=== PATIENT | female | born 1950 | race African-American/Black ===

== ENCOUNTER 2016-03-16 10:04 | Outpatient (CLI) ==
[2015-08-10 17:47] VITALS: BMI 29.0
[2016-03-16 10:17] LABS: BASOPHILS # (AUTO) 0.1 K/uL (0-0.2); BASOPHILS % (AUTO) 1.6 % (0.0-3.0); EOSINOPHILS # (AUTO) 0.2 K/ul (0.0-0.7); EOSINOPHILS % (AUTO) 2.1 % (0.0-7.0); HEMATOCRIT 36.8 % (37.0-47.0); HEMOGLOBIN 12.5 g/dl (12.0-16.0); IMMATURE GRANULOCYTE % (AUTO) 0.2 % (0.0-5.0); LYMPHOCYTES # (AUTO) 4.2 K/uL (0.60-3.4); LYMPHOCYTES % (AUTO) 51.6 (10.0-50.0); MEAN CORPUSCULAR HEMOGLOBIN 28.3 pg (27.0-31.0); MEAN CORPUSCULAR VOLUME 83.3 fl (81.0-99.0); MONOCYTES # (AUTO) 0.6 K/uL (0.4-2.0); MONOCYTES % (AUTO) 7.5 (0-10); PLATELET COUNT 307 10^3/uL (140-440); RED BLOOD COUNT 4.42 10^6/ul (4.20-5.40)
[2016-03-16 15:04] LABS: ALBUMIN 4.2 g/dL (3.4-5.0); ALBUMIN/GLOBULIN RATIO 1.31; ANION GAP 17.2; BILIRUBIN,TOTAL 1.08 mg/dL (0.00-1.20); BUN/CREATININE RATIO 18.18; CALCIUM 9.6 mg/dL (8.2-10.2); CHOL/HDL RATIO 4.1 (4.5-5.5); CREATININE 0.88 mg/dL (0.60-1.30); POTASSIUM 4.2 mmol/L (3.5-5.10); TOTAL PROTEIN 7.4 g/dL (5.8-8.1)
== END 2016-03-16 10:05 | disposition home or self-care (01) ==
LOC: LAB 10:04
PROVIDERS: ATTEND Nurse Practitioner Family
DX: E11.9 Type 2 diabetes mellitus without complications (principal); I63.9 Cerebral infarction, unspecified; I10 Essential (primary) hypertension; E78.1 Pure hyperglyceridemia; E78.5 Hyperlipidemia, unspecified
CPT/HCPCS: 36415; 80053; 80061; 83036; 84443; 85025

== ENCOUNTER 2016-06-25 10:25 | Outpatient (CLI) ==
[2015-08-10 17:47] VITALS: BMI 29.0
[2016-06-25 10:43] LABS: BASOPHILS # (AUTO) 0.2 K/uL (0-0.2); BASOPHILS % (AUTO) 2.1 % (0.0-3.0); EOSINOPHILS # (AUTO) 0.2 K/ul (0.0-0.7); EOSINOPHILS % (AUTO) 2.3 % (0.0-7.0); HEMATOCRIT 35.9 % (37.0-47.0); HEMOGLOBIN 12.2 g/dl (12.0-16.0); IMMATURE GRANULOCYTE % (AUTO) 0.3 % (0.0-5.0); LYMPHOCYTES # (AUTO) 4.4 K/uL (0.60-3.4); LYMPHOCYTES % (AUTO) 57.1 (10.0-50.0); MEAN CORPUSCULAR HEMOGLOBIN 27.7 pg (27.0-31.0); MEAN CORPUSCULAR VOLUME 81.6 fl (81.0-99.0); MONOCYTES # (AUTO) 0.6 K/uL (0.4-2.0); MONOCYTES % (AUTO) 7.2 (0-10); NEUTROPHILS # (AUTO) 2.4 K/ul (2.0-6.9); PLATELET COUNT 310 10^3/uL (140-440); WHITE BLOOD COUNT 7.78 K/ul (4.6-10.2)
[2016-06-25 11:19] LABS: ALBUMIN 4.2 g/dL (3.4-5.0); ALBUMIN/GLOBULIN RATIO 1.45; BILIRUBIN,TOTAL 1.27 mg/dL (0.00-1.20); BUN/CREATININE RATIO 18.29; CALCIUM 9.4 mg/dL (8.2-10.2); CHOL/HDL RATIO 3.7 (4.5-5.5); CREATININE 0.82 mg/dL (0.60-1.30); TOTAL PROTEIN 7.1 g/dL (5.8-8.1)
== END 2016-06-25 10:26 | disposition home or self-care (01) ==
LOC: LAB 10:25
PROVIDERS: ATTEND Nurse Practitioner Family
DX: E11.9 Type 2 diabetes mellitus without complications (principal); I63.9 Cerebral infarction, unspecified; E78.5 Hyperlipidemia, unspecified; E78.1 Pure hyperglyceridemia; I10 Essential (primary) hypertension
CPT/HCPCS: 36415; 80053; 80061; 83036; 84443; 85025

== ENCOUNTER 2016-10-22 10:14 | Outpatient (CLI) ==
[2015-08-10 17:47] VITALS: BMI 29.0
[2016-10-22 10:50] LABS: BASOPHILS # (AUTO) 0.1 K/uL (0-0.2); BASOPHILS % (AUTO) 1.9 % (0.0-3.0); EOSINOPHILS # (AUTO) 0.1 K/ul (0.0-0.7); EOSINOPHILS % (AUTO) 1.9 % (0.0-7.0); HEMATOCRIT 36.1 % (37.0-47.0); HEMOGLOBIN 12.5 g/dl (12.0-16.0); IMMATURE GRANULOCYTE % (AUTO) 0.1 % (0.0-5.0); LYMPHOCYTES # (AUTO) 3.8 K/uL (0.60-3.4); LYMPHOCYTES % (AUTO) 56.1 (10.0-50.0); MEAN CORPUSCULAR HEMOGLOBIN 27.4 pg (27.0-31.0); MEAN CORPUSCULAR HGB CONC 34.6 (31.8-35.4); MONOCYTES # (AUTO) 0.5 K/uL (0.4-2.0); MONOCYTES % (AUTO) 7.5 (0-10); NEUTROPHILS # (AUTO) 2.2 K/ul (2.0-6.9); NEUTROPHILS % (AUTO) 32.5; PLATELET COUNT 314 10^3/uL (140-440); RED BLOOD COUNT 4.57 10^6/ul (4.20-5.40); WHITE BLOOD COUNT 6.69 K/ul (4.6-10.2)
[2016-10-22 10:55] LABS: ALBUMIN 4.1 g/dL (3.4-5.0); ALBUMIN/GLOBULIN RATIO 1.28; ANION GAP 15.5; BILIRUBIN,TOTAL 1.45 mg/dL (0.00-1.20); BUN/CREATININE RATIO 19.23; CHOL/HDL RATIO 5.1 (4.5-5.5); CREATININE 0.78 mg/dL (0.60-1.30); POTASSIUM 3.5 mmol/L (3.5-5.10); TOTAL PROTEIN 7.3 g/dL (5.8-8.1)
== END 2016-10-22 10:15 | disposition home or self-care (01) ==
LOC: LAB 10:14
PROVIDERS: ATTEND Nurse Practitioner Family
DX: E78.5 Hyperlipidemia, unspecified (principal); I10 Essential (primary) hypertension; I63.9 Cerebral infarction, unspecified; E78.1 Pure hyperglyceridemia; E11.9 Type 2 diabetes mellitus without complications
CPT/HCPCS: 36415; 80053; 80061; 83036; 85025

== ENCOUNTER 2016-11-08 10:56 | Outpatient (CLI) ==
[2015-08-10 17:47] VITALS: BMI 29.0
== END 2016-11-08 10:57 | disposition home or self-care (01) ==
LOC: RAD 10:56
PROVIDERS: ATTEND Nurse Practitioner Family
DX: Z12.31 Encounter for screening mammogram for malignant neoplasm of breast (principal)
CPT/HCPCS: 77067

== ENCOUNTER 2017-01-19 10:25 | Outpatient (CLI) ==
[2015-08-10 17:47] VITALS: BMI 29.0
[2017-01-19 10:45] LABS: BASOPHILS # (AUTO) 0.1 K/uL (0-0.2); BASOPHILS % (AUTO) 1.6 % (0.0-3.0); EOSINOPHILS # (AUTO) 0.2 K/ul (0.0-0.7); EOSINOPHILS % (AUTO) 2.5 % (0.0-7.0); HEMATOCRIT 35.2 % (37.0-47.0); HEMOGLOBIN 12.2 g/dl (12.0-16.0); IMMATURE GRANULOCYTE % (AUTO) 0.5 % (0.0-5.0); LYMPHOCYTES # (AUTO) 3.5 K/uL (0.60-3.4); LYMPHOCYTES % (AUTO) 48.4 (10.0-50.0); MEAN CORPUSCULAR HGB CONC 34.7 (31.8-35.4); MEAN CORPUSCULAR VOLUME 80.9 fl (81.0-99.0); MONOCYTES # (AUTO) 0.6 K/uL (0.4-2.0); NEUTROPHILS # (AUTO) 2.8 K/ul (2.0-6.9); PLATELET COUNT 296 10^3/uL (140-440); RED BLOOD COUNT 4.35 10^6/ul (4.20-5.40); WHITE BLOOD COUNT 7.29 K/ul (4.6-10.2)
[2017-01-19 11:03] LABS: ALBUMIN 3.9 g/dL (3.4-5.0); ALBUMIN/GLOBULIN RATIO 1.15; ANION GAP 14.2; BILIRUBIN,TOTAL 0.88 mg/dL (0.00-1.20); BUN/CREATININE RATIO 12.5; CALCIUM 9.4 mg/dL (8.2-10.2); CHOL/HDL RATIO 3.8 (4.5-5.5); CREATININE 0.8 mg/dL (0.60-1.30); POTASSIUM 4.2 mmol/L (3.5-5.10); TOTAL PROTEIN 7.3 g/dL (5.8-8.1)
== END 2017-01-19 10:26 | disposition home or self-care (01) ==
LOC: LAB 10:25
PROVIDERS: ATTEND Nurse Practitioner Family
DX: Z12.31 Encounter for screening mammogram for malignant neoplasm of breast (principal); E11.9 Type 2 diabetes mellitus without complications; E78.5 Hyperlipidemia, unspecified; E78.1 Pure hyperglyceridemia; I63.9 Cerebral infarction, unspecified
CPT/HCPCS: 36415; 80053; 80061; 83036; 85025

== ENCOUNTER 2017-04-19 09:53 | Outpatient (CLI) ==
[2015-08-10 17:47] VITALS: BMI 29.0
== END 2017-04-19 09:54 | disposition home or self-care (01) ==
LOC: LAB 09:53
PROVIDERS: ATTEND Nurse Practitioner Family
DX: E78.1 Pure hyperglyceridemia (principal); E78.5 Hyperlipidemia, unspecified; E11.9 Type 2 diabetes mellitus without complications; I63.9 Cerebral infarction, unspecified; I10 Essential (primary) hypertension
CPT/HCPCS: 36415; 80053; 80061; 83036

== ENCOUNTER 2017-07-18 10:23 | Outpatient (CLI) ==
[2015-08-10 17:47] VITALS: BMI 29.0
== END 2017-07-18 10:24 | disposition home or self-care (01) ==
LOC: LAB 10:23
PROVIDERS: ATTEND Nurse Practitioner Family
DX: E11.9 Type 2 diabetes mellitus without complications (principal); I10 Essential (primary) hypertension; I63.9 Cerebral infarction, unspecified; E78.1 Pure hyperglyceridemia; E78.5 Hyperlipidemia, unspecified
CPT/HCPCS: 36415; 80053; 80061; 83036; 84443; 85025

== ENCOUNTER 2017-11-17 08:08 | Outpatient (CLI) ==
[2015-08-10 17:47] VITALS: BMI 29.0
--- NOTE | 2017-11-18 08:46 | MAMMO ---
EXAM: Digital screening mammogram with tomosynthesis HISTORY: Screening COMPARISON: 11/08/2016 FINDINGS: Digital MLO and CC views of the right and left breast were performed. Tomosynthesis was p erformed. Computer aided detection utilized. There are scattered fibroglandular densities. Benign bi lateral calcifications. There is no evidence for mass, asymmetry, distortion, or suspicious calcific ations in either breast. IMPRESSION: 1. No evidence of malignancy in the right or left breast. 2. Annual screening mammogram is recommended in one year. BIRADS category 2, benign
== END 2017-11-17 08:09 | disposition home or self-care (01) ==
LOC: RAD 08:08
PROVIDERS: ATTEND Nurse Practitioner Family
DX: Z12.31 Encounter for screening mammogram for malignant neoplasm of breast (principal)
CPT/HCPCS: 77067

== ENCOUNTER 2018-05-25 09:43 | Outpatient (CLI) ==
[2015-08-10 17:47] VITALS: BMI 29.0
== END 2018-05-25 09:44 | disposition home or self-care (01) ==
LOC: LAB 09:43
PROVIDERS: ATTEND Nurse Practitioner Family
DX: I63.9 Cerebral infarction, unspecified (principal); I10 Essential (primary) hypertension; E11.9 Type 2 diabetes mellitus without complications; E78.5 Hyperlipidemia, unspecified
CPT/HCPCS: 36415; 80053; 80061; 83036; 85025

== ENCOUNTER 2020-11-07 23:36 | Inpatient (IN) ==
--- NOTE | 2020-11-07 23:50 | ED.PDOC ---
General ED Provider: Dr. RITESH BENEDICT Chief Complaint: Hypertension Stated Complaint: was elevated tonight - daughter wanted to check it . Pt had some dizzyness past week . Last BP at office was in june when lisinopril was increased from 10 to 20 mg daily .Also on diltiazem sr 120. No chest pain , fever , palpitaions . Compliant with meds - take both btwn 10:30-1100 am daily Time Seen by Provider: 11/07/20 23:50 Mode of Arrival: Walk-In Information Source: Patient Exam Limitations: No limitations Primary Care Provider: XAVIER KAPOOR APRN, FNP-BC Nursing and Triage Documentation Reviewed and Agree: Yes Does patient meet sepsis criteria?: No System Inflammatory Response Syndrome: Not Applicable Sepsis Protocol: For patient's 13 years and over: Temp is 96.8 and below OR 101 and greater Pulse >90 BPM Resp >20/minute Acutely Altered Mental Status Are patient's symptoms suggestive of a new infection, such as: -Pneumonia -Skin, Soft Tissue -Endocarditis -UTI -Bone, Joint Infection -Implantable Device -Acute Abdominal Infection -Wound Infection -Meningitis -Blood Stream Catheter Infection -Unknown Cardiovascular Complaint Exam Hypertension Complaint/Exam Onset/Duration: Last BP measurement in June - was elevated then had increase in lisinopril Reported B/P Prior to Arrival: / Aggravating: Reports None Alleviating: Reports None Associated Signs and Symptoms: Reports Dizziness; Denies Chest pain, Vision changes, Anxiety, Recent stress, Headache, Numbness, Tingling, Weakness, Short of air or Swelling Related History: Reports Current Felton Inhibitors and Current Ca Ivy.Libertad Related Surgical History: Denies Cardiac Cath, PTCA/Stent, CABG, Pacemaker, Valve Replacement, Aneurysm Repair or Renal Surgery Cardiac Risk Factors: Reports Hypertension, Diabetes and Elevated lipids Recent Change in Medications: No Papilledema Present: No JVD Present: No Differential Diagnoses: Hypertension and Hypertensive Urgency Review of Systems Review Of Systems Constitutional: Reports No symptoms Ears, Nose, Mouth, Throat: Reports No symptoms Respiratory: Reports No symptoms Cardiac: Reports No symptoms GI: Reports No symptoms : Reports No symptoms Musculoskeletal: Reports No symptoms Skin: Reports No symptoms Neurological: Reports Other (dizzyness) Endocrine: Reports No symptoms Hematologic/Lymphatic: Reports No symptoms All Other Systems: Reviewed and Negative FOR[facility]LY [facility] Medical History Adrenal nodule Bipolar disorder Cataract Diabetes mellitus Dyslipidemia Encounter for diabetic foot exam Fall Hypertension Influenza vaccination declined by patient Injury of right scapular region Injury of toe on left foot Laceration of toe of left foot without damage to nail Menopause present Multiple gallstones Pneumococcal vaccination declined by patient Toenail avulsion Family History BROTHER Cancer BROTHER Cancer Other Colorectal cancer Social History Smoking and tobacco status: Never smoker Second hand smoke exposure: Yes Alcohol intake: never Substance use type: does not use Eleanor/jainism: None Special eleanor needs: No Agree to transfusion: Yes Adopted: No Caregiver/support person: Yes Foster care: No Household members: children Housing: apartment Lives independently: Yes Highest education level completed: high school graduate Financial difficulty paying for basics: not applicable service: No Current occupational status: retired Current occupational exposures/hazards: No Pets and animals: No Leisure activites: other History of recent travel: No Sexually active: No Do you think of yourself as: straight/heterosexual Current gender identity: female Seatbelt use: always Helmet use: No Drives intoxicated or rides with intoxicated carrier driver: No Current diet type/program: diabetic Water heater temperature set < 120 degrees: Yes Working smoke detector in home: Yes Fire extinguisher in home: Yes Carbon monoxide detector in home: Yes Firearms in home: No What type of physical activity do you participate in?: none Physical activity functional status: independent ambulation Surgical History History of tubal ligation (~1981) Female Reproductive History Menstrual Hx Hysterectomy: No Hx Tubal Ligation: Yes Physical Exam Physical Exam Appearance: Reports Well-appearing Ill-appearing: None Pain Distress: None Eyes: Reports MARCIAL, EOMI and Other (pupils small and equal - difficult to see disc) ENT: Reports Ears normal, Nose normal and Oropharynx normal Neck: Supple Respiratory: Reports Airway patent, Breath sounds clear and Breath sounds equal Cardiovascular: Reports RRR, Pulses normal, No rub and No murmur GI/: Reports Soft and Nontender Musculoskeletal: Reports Normal strength and ROM intact Skin: Reports Dry and Normal color Neurological: Reports Sensation intact, Motor intact, Alert and Oriented Psychiatric: Reports Affect appropriate and Mood appropriate Interpretation Radiology Interpretation Radiology Interpretation By: Radiologist Radiology Results: No acute changes Exam Interpreted: CT Scan Xray Comments: brain - no new stroke Radiology Results: No acute changes Exam Interpreted: Portable CXR EKG Interpretation Time of EKG #1: 02:08 Rate: Normal Rhythm: Sinus Ectopy: None Birdseye: Left ST Segment: Normal Interpretation: nac Critical Care Note Critical Care Note Total Critical Care Time (mins): 30 Comments: history /exam / lab / imaging charts reexam / up to date / meds for bp po and IV /re evaluate / hospitalist consult / reassess / family discussion Course Course Hematology/Chemistry: 11/08/20 00:45 11/08/20 00:45 Orders, Labs, Meds: Lab Review 11/08/20 11/08/20 11/08/20 00:45 00:45 03:35 WBC 9.18 RBC 4.06 L Hgb 11.3 L Hct 33.5 L MCV 82.5 MCH 27.8 MCHC 33.7 RDW Coeff of Nanette 13.8 Plt Count 282 Immature Gran % (Auto) 0.2 Neut % (Auto) 33.5 L Lymph % (Auto) 49.9 [place] % (Auto) 9.9 Eos % (Auto) 5.2 Baso % (Auto) 1.3 Neut # (Auto) 3.1 Lymph # (Auto) 4.6 H [place] # (Auto) 0.9 Eos # (Auto) 0.5 Baso # (Auto) 0.1 Immature Gran # (Auto) 0.0 Sodium 141.9 Potassium 3.54 Chloride 107.0 Carbon Dioxide 24.2 Anion Gap 14.24 BUN 16.6 Creatinine 0.91 Estimated GFR (MDRD) 74.00 BUN/Creatinine Ratio 18.24 Glucose 202.1 H Calcium 10.06 Magnesium 1.38 L Total Bilirubin 0.72 AST 47.5 H ALT 39.5 H Alkaline Phosphatase 95.9 Troponin I 0.019 Total Protein 6.75 Albumin 4.24 Globulin 2.51 Albumin/Globulin Ratio 1.68 Urine Color Urine Clarity Urine pH Ur Specific [place] Urine Protein Urine Glucose (UA) Urine Ketones Urine Blood Urine Nitrite Urine Bilirubin Urine Urobilinogen Ur Leukocyte Esterase Urine Microscopic WBC Ur Squamous Epith Cells Urine Bacteria Hyaline Casts Urine Mucus Adenovirus (PCR) Not detected B. pertussis DNA (PCR) Not detected B.parapertussis DNA PCR Not detected C. pneumoniae DNA (PCR) Not detected Coronavirus OC43 (PCR) Not detected Coronavirus HKU1 (PCR) Not detected Coronavirus 229E (PCR) Not detected Coronavirus NL63 (PCR) Not detected Human Metapneumovir PCR Not detected Influenza Type A (PCR) Not detected Influenza B (RT-PCR) Not detected M. pneumoniae (PCR) Not detected Parainfluenza 1 (PCR) Not detected Parainfluenza 2 (PCR) Not detected Parainfluenza 3 (PCR) Not detected Parainfluenza 4 (PCR) Not detected RSV (PCR) Not detected Entero/Rhino (PCR) Not detected SARS-CoV-2 (PCR) Not detected 11/08/20 04:00 WBC RBC Hgb Hct MCV MCH MCHC RDW Coeff of Nanette Plt Count Immature Gran % (Auto) Neut % (Auto) Lymph % (Auto) [place] % (Auto) Eos % (Auto) Baso % (Auto) Neut # (Auto) Lymph # (Auto) [place] # (Auto) Eos # (Auto) Baso # (Auto) Immature Gran # (Auto) Sodium Potassium Chloride Carbon Dioxide Anion Gap BUN Creatinine Estimated GFR (MDRD) BUN/Creatinine Ratio Glucose Calcium Magnesium Total Bilirubin AST ALT Alkaline Phosphatase Troponin I Total Protein Albumin Globulin Albumin/Globulin Ratio Urine Color Yellow Urine Clarity Clear Urine pH 5.5 Ur Specific [place] 1.025 Urine Protein 2+ H Urine Glucose (UA) Negative Urine Ketones Negative Urine Blood Negative Urine Nitrite Negative Urine Bilirubin Negative Urine Urobilinogen 0.2 Ur Leukocyte Esterase Negative Urine Microscopic WBC 0-2 Ur Squamous Epith Cells 5-10 Urine Bacteria Trace Hyaline Casts 2-5 Urine Mucus 1+ Adenovirus (PCR) B. pertussis DNA (PCR) B.parapertussis DNA PCR C. pneumoniae DNA (PCR) Coronavirus OC43 (PCR) Coronavirus HKU1 (PCR) Coronavirus 229E (PCR) Coronavirus NL63 (PCR) Human Metapneumovir PCR Influenza Type A (PCR) Influenza B (RT-PCR) M. pneumoniae (PCR) Parainfluenza 1 (PCR) Parainfluenza 2 (PCR) Parainfluenza 3 (PCR) Parainfluenza 4 (PCR) RSV (PCR) Entero/Rhino (PCR) SARS-CoV-2 (PCR) Orders Category Date Time Status EKG-(ED ONLY) Stat CARDIO 11/08/20 00:28 Completed ED IV/MEDIPORT/POWERPORT .ONCE EMERGENCY 11/08/20 01:55 Active CBC W/ AUTO DIFF Stat LAB 11/08/20 00:45 Completed COMPREHENSIVE METABOLIC PANEL Stat LAB 11/08/20 00:45 Completed MAGNESIUM Stat LAB 11/08/20 00:45 Completed RESPIRATORY PANEL 2.1 (PCR) Stat LAB 11/08/20 03:35 Completed TROPONIN I Stat LAB 11/08/20 00:45 Completed URINALYSIS WITH MICROSCOPIC Stat LAB 11/08/20 04:00 Completed 0.9 % Sodium Chloride [Saline Flush] MEDS 11/08/20 01:55 Active 1 syr IVF PRN PRN Clonidine HCl [Catapres] MEDS 11/08/20 01:55 Discontinued 0.1 mg PO ONCE STA Hydralazine HCl MEDS 11/08/20 03:25 Discontinued 5 mg IVP ONCE ONE Hydralazine HCl MEDS 11/08/20 02:41 Discontinued 5 mg IVP ONCE STA Lisinopril [Zestril] MEDS 11/08/20 00:28 Discontinued 20 mg PO ONCE STA CHEST, 2 VIEWS PA & LAT Stat RADS 11/08/20 00:[address] HEAD W/O CONTRAST Stat RADS 11/08/20 00:28 Completed Medications Generic Name Dose Route Start Last Admin Trade Name Freq PRN Reason Stop Dose Admin Magnesium Sulfate/Dextrose 2 gm in 200 mls @ 100 mls/hr 11/08/20 09:00 Magnesium Sulfate 1 Gm/100 Ml D5w IV 11/08/20 10:59 ONCE ONE Sodium Chloride 1 syr 11/08/20 01:55 0.9% Sodium Chloride 10 Ml Disp.Syrin IVF PRN PRN To flush IV Discontinued Medications Generic Name Dose Route Start Last Admin Trade Name Freq PRN Reason Stop Dose Admin Clonidine 0.1 mg 11/08/20 01:55 11/08/20 02:01 Clonidine Hcl 0.1 Mg Tablet PO 11/08/20 01:56 0.1 mg ONCE STA Administration Hydralazine HCl 5 mg 11/08/20 02:41 11/08/20 02:47 Hydralazine Hcl 20 Mg/Ml Sdv IVP 11/08/20 02:42 5 mg ONCE STA Administration Hydralazine HCl 5 mg 11/08/20 03:25 11/08/20 05:17 Hydralazine Hcl 20 Mg/Ml Sdv IVP 11/08/20 03:26 Not Given ONCE ONE Hydralazine HCl 5 mg 11/08/20 07:35 11/08/20 07:45 Hydralazine Hcl 20 Mg/Ml Sdv IVP 11/08/20 07:36 5 mg ONCE STA Administration Magnesium Sulfate/Dextrose 1 gm in 100 mls @ 100 mls/hr 11/08/20 08:30 Magnesium Sulfate 1 Gm/100 Ml D5w IV 11/08/20 09:29 ONCE ONE Lisinopril 20 mg 11/08/20 00:28 11/08/20 00:42 Lisinopril 10 Mg Tablet PO 11/08/20 00:29 20 mg ONCE STA Administration Vital Signs: Temp Pulse Resp BP Pulse Ox 11/07/20 23:37 96.8 F L 72 14 208/102 H 100 CECE Risk Score CECE Risk Score: Risk Score Odds of by 30D 0 0.1 (0.1-0.2) 1 0.3 (0.2-0.3) 2 0.4 (0.3-0.5) 3 0.7 (0.6-0.9) 4 1.2 (1.0-1.5) 5 2.2 (1.9-2.6) 6 3.0 (2.5-3.6) 7 4.8 (3.8-6.1) Discharge Plan Discharge Patient Disposition: PLACED OBSERVATION Discharge Problem: Hypertensive urgency ED Provider: RITESH BENEDICT Condition: Good Physician Progress Note: [pt Syed works at [facility] [employer] and asked about her Mother going there / called and they had 4 pts awaiting beds / reassessed pt and bp slowly coming down and additional hydralazine stopped. Pt has remained at 25-30 % lower than her arrival pressures. Rediscussed with Daughter and pt will considered for observation here . Rechecked with pt and she is asymptomatic and awake . Will repeat EKG and troponin. EKG - some t wave inversion I,,AVL ,V5 & V6.suggesting lateral ischemia Prior tracing had smaller t inversion 5 and 6 only.Will run another troponin while in the ED . Trop increased but is still in normal limits. No chest pain . Pressure has went up and will add 5 mg hydralazine IV. Update provided to Tia ( zaki ) Pt mentioned going home and explained her bp needs further monitoring.Syed works at and they have no tele beds available and she asked us to try [facility]. Report given to Dr Lima at shift change. Unable to put mag IV order in requested pharmacisit assistance. Added accucheck.
[2020-11-08] MEDS ORDERED: ZESTRIL PO STA (00:28)
[2020-11-08 00:50] LABS: BASOPHILS # (AUTO) 0.1 K/uL (0-0.2); BASOPHILS % (AUTO) 1.3 % (0.0-3.0); EOSINOPHILS # (AUTO) 0.5 K/ul (0.0-0.7); EOSINOPHILS % (AUTO) 5.2 % (0.0-7.0); HEMATOCRIT 33.5 % (37.0-47.0); HEMOGLOBIN 11.3 g/dl (12.0-16.0); IMMATURE GRANULOCYTE % (AUTO) 0.2 % (0.0-5.0); LYMPHOCYTES # (AUTO) 4.6 K/uL (0.60-3.4); LYMPHOCYTES % (AUTO) 49.9 (10.0-50.0); MEAN CORPUSCULAR HEMOGLOBIN 27.8 pg (27.0-31.0); MEAN CORPUSCULAR HGB CONC 33.7 (31.8-35.4); MEAN CORPUSCULAR VOLUME 82.5 fl (81.0-99.0); MONOCYTES # (AUTO) 0.9 K/uL (0.4-2.0); MONOCYTES % (AUTO) 9.9 (0-10); NEUTROPHILS # (AUTO) 3.1 K/ul (2.0-6.9); NEUTROPHILS % (AUTO) 33.5 % (42.2-75.2); PLATELET COUNT 282 10^3/uL (140-440); RDW COEFFICIENT OF VARIATION 13.8 % (11.6-14.8); RED BLOOD COUNT 4.06 10^6/ul (4.20-5.40); WHITE BLOOD COUNT 9.18 K/ul (4.6-10.2)
[2020-11-08 00:57] LABS: ALANINE AMINOTRANSFERASE 39.5 U/L (0-35); ALBUMIN 4.24 g/dL (3.5-5.0); ALKALINE PHOSPHATASE 95.9 U/L (53-141); ASPARTATE AMINO TRANSFERASE 47.5 U/L (14-36); BILIRUBIN,TOTAL 0.72 mg/dL (0.2-1.3); BLOOD UREA NITROGEN 16.6 mg/dL (7-17); CALCIUM 10.06 mg/dL (8.4-10.2); CARBON DIOXIDE 24.2 mmol/L (22-30.0); CREATININE 0.91 mg/dL (0.60-1.30); GLUCOSE 202.1 mg/dL (74-106); MAGNESIUM 1.38 mg/dL (1.6-2.3); POTASSIUM 3.54 mmol/L (3.5-5.1); SODIUM 141.9 mmol/L (134.5-145); TOTAL PROTEIN 6.75 g/dL (6.3-8.2)
[2020-11-08 01:09] LABS: TROPONIN I 0.019 ng/ml (0.0000-0.120)
--- NOTE | 2020-11-08 01:20 | CT ---
EXAM: CT head without contrast. HISTORY: Dizzy past week on clopidigril/hyperten, hx cva. PROCEDURE: Contiguous axial CT images of the head without contrast with coronal and sagittal reforma ts. FINDINGS: There is diffuse cerebral atrophy. The ventricles and basal cisterns are normal in size an d configuration. No evidence of mass or midline shift. No intracranial hemorrhage or evidence of ne w large vessel infarct. There are old right frontal, right parietal and left cerebellar infarcts. T here are chronic small vessel ischemic changes in the white matter. There is mucosal thickening in t he left maxillary sinus. There is partial sclerosis of the right mastoid air cells. There is partia l opacification of the left mastoid air cells. Impression: No intracranial hemorrhage or evidence of new large vessel infarct. 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 Chronic small vessel ischemic changes. Diffuse cerebral atrophy. Left mastoiditis. Left maxillary sinusitis. All CT scans are performed using dose optimization techniques as appropriate to the performed exam an d include at least one of the following: Automated exposure control, adjustment of the mA and/or kV according t o size, and the use of iterative reconstruction technique.
--- NOTE | 2020-11-08 01:21 | DI ---
EXAM: PA and lateral views of the chest. HISTORY: Hypertension. FINDINGS: The bones are unremarkable. The cardiac silhouette and pulmonary vasculature are within no rmal limits. There is ectasia of the thoracic aorta. The costophrenic angles are clear. No infiltr ate or consolidation. There is eventration of the right hemidiaphragm. Impression: No acute cardiopulmonary disease.
[2020-11-08] MEDS ORDERED: CATAPRES PO STA (01:55)
[2020-11-08] MEDS ORDERED: HYDRALAZINE HCL IVP STA ×2 (02:41→07:35)
[2020-11-08] MEDS ORDERED: HYDRALAZINE HCL IVP ONE (03:25)
[2020-11-08 03:40] LABS: BORDETELLA PARAPERTUSSIS (PCR) NOT DETECTED (NOT DETECT); BORDETELLA PERTUSSIS (PCR) NOT DETECTED (NOT DETECT); CHLAMYDIA PNEUMONIAE (PCR) NOT DETECTED (NOT DETECT); CORONAVIRUS 229E (PCR) NOT DETECTED (NOT DETECT); CORONAVIRUS HKU1 (PCR) NOT DETECTED (NOT DETECT); CORONAVIRUS NL63 (PCR) NOT DETECTED (NOT DETECT); CORONAVIRUS OC43 (PCR) NOT DETECTED (NOT DETECT); HUMAN METAPNEUMOVIRUS (PCR) NOT DETECTED (NOT DETECT); HUMAN RHINOVIRUS/ENTEROV (PCR) NOT DETECTED (NOT DETECT); INFLUENZA B (PCR) NOT DETECTED (NOT DETECT); MYCOPLASMA PNEUMONIAE (PCR) NOT DETECTED (NOT DETECT); PARAINFLUENZA VIRUS 1 (PCR) NOT DETECTED (NOT DETECT); PARAINFLUENZA VIRUS 2 (PCR) NOT DETECTED (NOT DETECT); PARAINFLUENZA VIRUS 3 (PCR) NOT DETECTED (NOT DETECT); PARAINFLUENZA VIRUS 4 (PCR) NOT DETECTED (NOT DETECT); RESPIRATORY SYNCYTIAL V (PCR) NOT DETECTED (NOT DETECT); SARS_COV_2 (PCR) NOT DETECTED (NOT DETECT)
[2020-11-08 04:25] LABS: ADENOVIRUS (PCR) NOT DETECTED (NOT DETECT)
[2020-11-08 04:51] LABS: BILIRUBIN,URINE Negative (NEGATIVE); CLARITY,URINE Clear (CLEAR); COLOR,URINE Yellow (YELLOW); GLUCOSE, URINE (UA) Negative (NEGATIVE); KETONES,URINE Negative (NEGATIVE); LEUKOCYTE ESTERASE ,URINE Negative (NEGATIVE); NITRITE,URINE Negative (NEGATIVE); PH,URINE 5.5 (5-9); PROTEIN,URINE 2+ (NEGATIVE); URINE, BLOOD Negative (NEGATIVE); UROBILINOGEN,URINE 0.2 (0.2)
[2020-11-08 04:57] LABS: URINE WBC, MICROSCOPIC 0-2 (0-2)
[2020-11-08 04:58] LABS: BACTERIA,URINE TRACE (NOT PRESENT); MUCUS,URINE 1+ (NOT PRESENT)
[2020-11-08] MEDS ORDERED: MAGNESIUM SULFATE 1 GM/100 ML D5W 1 GM/100 ML BAG IV ONE (08:30)
[2020-11-08] MEDS ORDERED: MAGNESIUM SULFATE 1 GM/100 ML D5W 2 GM/200 ML BAG IV ONE (09:00)
[2020-11-08 11:45] VITALS: BMI 29.8
[2020-11-08] MEDS ORDERED: NITROSTAT SL PRN (12:33)
[2020-11-08] MEDS ORDERED: TYLENOL PO PRN (12:33)
[2020-11-08 13:01] LABS: BASOPHILS # (AUTO) 0.1 K/uL (0-0.2); BASOPHILS % (AUTO) 1.4 % (0.0-3.0); EOSINOPHILS # (AUTO) 0.5 K/ul (0.0-0.7); EOSINOPHILS % (AUTO) 5.2 % (0.0-7.0); HEMATOCRIT 37.2 % (37.0-47.0); HEMOGLOBIN 12.2 g/dl (12.0-16.0); IMMATURE GRANULOCYTE % (AUTO) 0.3 % (0.0-5.0); LYMPHOCYTES # (AUTO) 3.7 K/uL (0.60-3.4); LYMPHOCYTES % (AUTO) 42.5 (10.0-50.0); MEAN CORPUSCULAR HGB CONC 32.8 (31.8-35.4); MEAN CORPUSCULAR VOLUME 82.3 fl (81.0-99.0); MONOCYTES # (AUTO) 0.6 K/uL (0.4-2.0); MONOCYTES % (AUTO) 7.1 (0-10); NEUTROPHILS # (AUTO) 3.8 K/ul (2.0-6.9); NEUTROPHILS % (AUTO) 43.5 % (42.2-75.2); PLATELET COUNT 325 10^3/uL (140-440); RDW COEFFICIENT OF VARIATION 13.8 % (11.6-14.8); RED BLOOD COUNT 4.52 10^6/ul (4.20-5.40); WHITE BLOOD COUNT 8.77 K/ul (4.6-10.2)
[2020-11-08 13:13] LABS: ALANINE AMINOTRANSFERASE 45.3 U/L (0-35); ALBUMIN 4.81 g/dL (3.5-5.0); ALKALINE PHOSPHATASE 78.8 U/L (53-141); ASPARTATE AMINO TRANSFERASE 47.6 U/L (14-36); BILIRUBIN,TOTAL 1.12 mg/dL (0.2-1.3); BLOOD UREA NITROGEN 13.4 mg/dL (7-17); CALCIUM 10.02 mg/dL (8.4-10.2); CARBON DIOXIDE 27.9 mmol/L (22-30.0); CHLORIDE 103.9 mmol/L (98-107); CREATINE KINASE 107.3 U/L (30-135); CREATININE 0.93 mg/dL (0.60-1.30); GLUCOSE 235.6 mg/dL (74-106); POTASSIUM 3.88 mmol/L (3.5-5.1); SODIUM 141.9 mmol/L (134.5-145); TOTAL PROTEIN 7.62 g/dL (6.3-8.2)
[2020-11-08 13:24] LABS: TROPONIN I 0.017 ng/ml (0.0000-0.120)
[2020-11-08] MEDS: COREG PO SCH ×2 (13:30→17:35)
[2020-11-08] MEDS: MINOXIDIL PO SCH ×2 (13:32→17:35)
[2020-11-08 13:43] LABS: THYROID STIMULATING HORMONE 1.49 uIU/L (0.465-4.68)
[2020-11-08] MEDS: GLUCOPHAGE PO SCH (17:35)
[2020-11-08 20:55] LABS: CREATINE KINASE 91.8 U/L (30-135)
[2020-11-08] MEDS ORDERED: XALATAN EACHEYE SCH (21:00)
[2020-11-08] MEDS ORDERED: OMEGA PO SCH (21:00)
[2020-11-08] MEDS ORDERED: FATTY ACIDS PO SCH (21:00)
[2020-11-08 21:08] LABS: TROPONIN I 0.021 ng/ml (0.0000-0.120)
[2020-11-08] MEDS: RISPERDAL PO SCH (21:13)
[2020-11-08] MEDS: LANTUS SUBCUT SCH (21:14)
[2020-11-09 04:54] LABS: BASOPHILS # (AUTO) 0.1 K/uL (0-0.2); BASOPHILS % (AUTO) 1.3 % (0.0-3.0); EOSINOPHILS # (AUTO) 0.4 K/ul (0.0-0.7); EOSINOPHILS % (AUTO) 4.5 % (0.0-7.0); HEMATOCRIT 32.7 % (37.0-47.0); HEMOGLOBIN 10.8 g/dl (12.0-16.0); IMMATURE GRANULOCYTE % (AUTO) 0.3 % (0.0-5.0); LYMPHOCYTES # (AUTO) 3.6 K/uL (0.60-3.4); LYMPHOCYTES % (AUTO) 44.8 (10.0-50.0); MEAN CORPUSCULAR HEMOGLOBIN 27.3 pg (27.0-31.0); MEAN CORPUSCULAR VOLUME 82.6 fl (81.0-99.0); MONOCYTES # (AUTO) 0.8 K/uL (0.4-2.0); MONOCYTES % (AUTO) 10.2 (0-10); NEUTROPHILS # (AUTO) 3.1 K/ul (2.0-6.9); NEUTROPHILS % (AUTO) 38.9 % (42.2-75.2); PLATELET COUNT 264 10^3/uL (140-440); RDW COEFFICIENT OF VARIATION 13.9 % (11.6-14.8); RED BLOOD COUNT 3.96 10^6/ul (4.20-5.40); WHITE BLOOD COUNT 7.95 K/ul (4.6-10.2)
[2020-11-09 05:07] LABS: ALANINE AMINOTRANSFERASE 38.5 U/L (0-35); ALBUMIN 4.01 g/dL (3.5-5.0); ALKALINE PHOSPHATASE 61.3 U/L (53-141); ASPARTATE AMINO TRANSFERASE 46.3 U/L (14-36); BILIRUBIN,TOTAL 0.79 mg/dL (0.2-1.3); BLOOD UREA NITROGEN 19.9 mg/dL (7-17); CALCIUM 9.38 mg/dL (8.4-10.2); CHLORIDE 106.7 mmol/L (98-107); CHOLESTEROL 132.6 mg/dL (0-200); CREATININE 0.99 mg/dL (0.60-1.30); GLUCOSE 143.2 mg/dL (74-106); HDL CHOLESTEROL 34.4 mg/dL (35-80); POTASSIUM 3.66 mmol/L (3.5-5.1); SODIUM 142.6 mmol/L (134.5-145); TOTAL PROTEIN 6.45 g/dL (6.3-8.2); TRIGLYCERIDES 176.8 mg/dL (0-150)
[2020-11-09] MEDS ORDERED: ZESTRIL PO SCH (09:00)
[2020-11-09] MEDS ORDERED: VITAMIN E 400 UNIT PO SCH (09:00)
[2020-11-09] MEDS: TIMOPTIC 0.5% OPTH EACHEYE SCH (09:18)
[2020-11-09] MEDS: COREG PO SCH ×2 (09:20→16:17)
[2020-11-09] MEDS: LIPITOR PO SCH (09:20)
[2020-11-09] MEDS: VITAMIN C PO SCH (09:21)
[2020-11-09] MEDS: TRADJENTA PO SCH (09:21)
[2020-11-09] MEDS: NIASPAN PO SCH (09:21)
[2020-11-09] MEDS: PLAVIX PO SCH (09:21)
[2020-11-09] MEDS: MINOXIDIL PO SCH ×2 (09:21→16:17)
[2020-11-09] MEDS: GLUCOPHAGE PO SCH ×2 (09:22→16:17)
[2020-11-09] MEDS: OMEGA-3 FISH OIL PO SCH (09:22)
[2020-11-09] MEDS: MULTIVITAMIN TABLET PO SCH (09:22)
[2020-11-09] MEDS: VITAMIN E PO SCH (09:43)
[2020-11-09] MEDS: HUMULIN R SUBCUT PRN ×2 (16:39→20:43)
[2020-11-09] MEDS: RISPERDAL PO SCH (20:37)
[2020-11-09] MEDS: CARDIZEM PO SCH (20:37)
[2020-11-09] MEDS: LANTUS SUBCUT SCH (20:38)
[2020-11-09] MEDS ORDERED: XALATAN EACHEYE SCH (21:00)
[2020-11-10 05:36] LABS: BASOPHILS # (AUTO) 0.1 K/uL (0-0.2); BASOPHILS % (AUTO) 1.3 % (0.0-3.0); EOSINOPHILS # (AUTO) 0.4 K/ul (0.0-0.7); EOSINOPHILS % (AUTO) 4.3 % (0.0-7.0); HEMATOCRIT 31.6 % (37.0-47.0); HEMOGLOBIN 10.5 g/dl (12.0-16.0); IMMATURE GRANULOCYTE % (AUTO) 0.1 % (0.0-5.0); LYMPHOCYTES # (AUTO) 3.8 K/uL (0.60-3.4); LYMPHOCYTES % (AUTO) 46.3 (10.0-50.0); MEAN CORPUSCULAR HEMOGLOBIN 27.6 pg (27.0-31.0); MEAN CORPUSCULAR HGB CONC 33.2 (31.8-35.4); MEAN CORPUSCULAR VOLUME 83.2 fl (81.0-99.0); MONOCYTES # (AUTO) 0.9 K/uL (0.4-2.0); MONOCYTES % (AUTO) 10.5 (0-10); NEUTROPHILS # (AUTO) 3.1 K/ul (2.0-6.9); NEUTROPHILS % (AUTO) 37.5 % (42.2-75.2); PLATELET COUNT 298 10^3/uL (140-440); RDW COEFFICIENT OF VARIATION 13.7 % (11.6-14.8)
[2020-11-10 05:51] LABS: ALBUMIN 4.06 g/dL (3.5-5.0); ALKALINE PHOSPHATASE 58.7 U/L (53-141); ASPARTATE AMINO TRANSFERASE 45.6 U/L (14-36); BILIRUBIN,TOTAL 0.95 mg/dL (0.2-1.3); BLOOD UREA NITROGEN 22.2 mg/dL (7-17); CALCIUM 9.04 mg/dL (8.4-10.2); CARBON DIOXIDE 26.2 mmol/L (22-30.0); CHLORIDE 105.3 mmol/L (98-107); CREATININE 0.95 mg/dL (0.60-1.30); GLUCOSE 159.4 mg/dL (74-106); POTASSIUM 3.61 mmol/L (3.5-5.1); SODIUM 139.1 mmol/L (134.5-145); TOTAL PROTEIN 6.53 g/dL (6.3-8.2)
[2020-11-10] MEDS: MINOXIDIL PO SCH (08:38)
[2020-11-10] MEDS: CARDIZEM PO SCH (08:38)
--- NOTE | 2020-11-10 08:58 | PCM.PROG ---
Attending Provider: ATTENDING PROVIDER: Dr. MERCEDES PACHECO This patient is seen with Lisa Venegas, Nurse Practitioner. DATE OF SERVICE: 11/10/20 SUBJECTIVE: This 70 year old AA/BLACK F was hospitalized 11/08/20. The patient is resting comfortably in bed. Blood pressure has been well-controlled. She has renal US with Doppler today. She still has some mild dizziness upon standing. REVIEW OF SYSTEMS: CONSTITUTIONAL: No night sweats. No fatigue, malaise, lethargy. No fever or chi lls. HEENT: Eyes: No visual changes. No eye pain. No eye discharge. ENT: No runny nose. No epistaxis. No sinus pain. No odynophagia. No congestion. RESPIRATORY: No cough, no congestion. No hemoptysis. No shortness of breath. CARDIOVASCULAR: No angina symptoms. No CHF symptoms. No atypical chest pain for CAD. No palpitations. No orthopnea.. GASTROINTESTINAL: No abdominal pain. No nausea or vomiting. No diarrhea or constipation. No hematemesis. No hematochezia. GENITOURINARY: No urgency. No frequency. No dysuria. No hematuria. No obstructive symptoms. No discharge. No pain. No significant abnormal bleeding. MUSCULOSKELETAL: No musculoskeletal pain; no joint swelling. NEUROLOGICAL: Awake, alert, oriented to time, place and person. No headache. No neck pain. No syncope. No seizures. PSYCHIATRIC: Not anxious. No depression. No suicidal thoughts. No homicidal thoughts. SKIN: No rash. No lesions. No wounds. ENDOCRINE: No unexplained weight loss. No weight gain. HEMATOLOGIC/LYMPHATIC: No anemia. No purpura. No petechiae. No prolonged or excessive bleeding. No palpable lymph nodes. PHYSICAL EXAMINATION: GENERAL: The patient is awake, alert and oriented, lying/sitting in bed in no distress. VITAL SIGNS: Temperature 97.6 F, Pulse 71, Respiratory Rate 16, BP 117/60, Pulse Ox 96% HEENT: Head normocephalic, atraumatic. Eyes: Extraocular muscles are intact. Pupils are equal, round and reactive to light and accommodation. Ears: No lesions. Nose appeared normal. Throat: No exudate or erythema. NECK: Supple. No JVD, no carotid bruit. No lymphadenopathy or thyromegaly. LUNGS: Diminished breath sounds. Clear to auscultation. Percussion note normal. Chest symmetrical. HEART: S1, S2, no S3. No murmurs. No cyanosis or clubbing. No ascites. Puls es: Dorsalis pedis and posterior tibial pulses +1 to +2 both sides. ABDOMEN: Soft. Non-tender. Bowel sounds active. No CVA tenderness. No mass felt. EXTREMITIES: No edema. Full range of motion of all extremities, equal. NEUROLOGIC: Dizziness upon standing. Cranial nerves II through XII are grossly intact. No headache. No double vision. SKIN: Not dry. Intact. Turgor-normal. LYMPHATIC: No palpable lymph nodes/no lymphedema. MUSCULOSKELETAL: Normal joints with no swelling. Muscle tone is normal. LAB REVIEW: 11/10/20 04:59 11/10/20 04:59 11/10/20 04:59: Sodium 139.1, Potassium 3.61, Chloride 105.3, Carbon Dioxide 26.2, Anion Gap 11.21, BUN 22.2 H, Creatinine 0.95, Estimated GFR (MDRD) 71.00, BUN/Creatinine Ratio 23.36, Glucose 159.4 H, Calcium 9.04, Total Bilirubin 0.95, AST 45.6 H, ALT 40.0 H, Alkaline Phosphatase 58.7, Total Protein 6.53, Albumin 4.06, Globulin 2.47, Albumin/Globulin Ratio 1.64 11/10/20 04:59: WBC 8.20, RBC 3.80 L, Hgb 10.5 L, Hct 31.6 L, MCV 83.2, MCH 27.6, MCHC 33.2, RDW Coeff of Nanette 13.7, Plt Count 298, Immature Gran % (Auto) 0.1, Neut % (Auto) 37.5 L, Lymph % (Auto) 46.3, [place] % (Auto) 10.5 H, Eos % (Auto) 4.3, Baso % (Auto) 1.3, Neut # (Auto) 3.1, Lymph # (Auto) 3.8 H, [place] # (Auto) 0.9, Eos # (Auto) 0.4, Baso # (Auto) 0.1, Immature Gran # (Auto) 0.0 ASSESSMENT: Please see below. 1. Hypertension. 2. Diabetes mellitus Type 2. 3. History of multiple infarcts. 4. Obesity. 5. Metabolic syndrome. 6. Dyslipidemia. 7. Chronic sinusitis. PLAN: 1. Flonase two sprays to each side daily, stay on for one month. 2. Renal US with Doppler. 3. Anticipate possible discharge today. 4. Will followup in our office. Plan and coordination of the patient's care discussed in the presence of Maintenance Supervisor Electrical and nurse. CONDITION: Stable SCRIBED BY: LAURA DAILY Spray Painting Machine Operator scribed while in presence of service performed by Dr. Pacheco/Lisa Venegas APRN on 11/10/20 ([id number])
[2020-11-10] MEDS ORDERED: FLONASE NAS SCH (09:00)
[2020-11-10] MEDS ORDERED: ZESTORETIC 20-12.5 MG TAB PO SCH (09:00)
[2020-11-10] MEDS: LIPITOR PO SCH (10:06)
[2020-11-10] MEDS: VITAMIN E PO SCH (10:06)
[2020-11-10] MEDS: MULTIVITAMIN TABLET PO SCH (10:07)
[2020-11-10] MEDS: OMEGA-3 FISH OIL PO SCH (10:07)
[2020-11-10] MEDS: NIASPAN PO SCH (10:07)
[2020-11-10] MEDS: TRADJENTA PO SCH (10:07)
[2020-11-10] MEDS: VITAMIN C PO SCH (10:08)
[2020-11-10] MEDS: COREG PO SCH (10:08)
[2020-11-10] MEDS: PLAVIX PO SCH (10:08)
[2020-11-10] MEDS: GLUCOPHAGE PO SCH (10:08)
[2020-11-10] MEDS: TIMOPTIC 0.5% OPTH EACHEYE SCH (10:09)
--- NOTE | 2020-11-10 10:20 | US ---
EXAM: Renal artery Doppler ultrasound. HISTORY: Hypertension COMPARISON: None TECHNIQUE: Renal artery Doppler ultrasound was performed. Duplex imaging was performed with color, collins-scale and Doppler imaging. FINDINGS: The aorta and inferior vena cava are patent. The aorta measures 1.2 cm at the level of the renal art eries. Peak systolic velocity in the aorta is 0.5 cm/sec. The right kidney measures 10.6 cm in length. No hydronephrosis. Peak systolic velocities in the [place] n renal artery at the ostium, midportion, and renal hilum are 0.4, 0.5, and 0.5 cm/sec respectively. These values are normal. Doppler wave forms are normal. The arcuate artery resistive index measure s 0.67. This value is normal. Right renal vein is patent. The left kidney measures 10.4 cm in length. No hydronephrosis. Peak systolic velocities in the main renal artery at the ostium, midportion, and renal hilum are 0.4 , 0.8 , and 0.7 cm/sec respectively. These values are normal. Doppler wave forms are normal. The arcuate artery resistive index measur es 0.67. This value is normal. Left renal vein is patent. IMPRESSION: 1. No evidence of renal artery stenosis. 2. Hepatic steatosis
--- NOTE | 2020-11-10 10:21 | US ---
EXAM: Ultrasound bilateral carotid duplex HISTORY: Dizziness COMPARISON: None TECHNIQUE: Sonographic and color Doppler evaluation of the carotids were performed. FINDINGS: The right carotid is patent in appearance with scattered moderate atherosclerotic plaque visualized. The right ICA peak systolic velocity measures 68 cm/sec which is normal. The ICA / CCA peak systolic velocity ratio is 0.7 and ICA end-diastolic velocity is 30 cm/sec. The left carotid is patent in appearance with scattered moderate atherosclerotic plaque visualized. The left ICA peak systolic velocity measures 69 cm/sec which is within normal limits. The left ICA / CCA peak systolic velocity ratio is 0.8 and ICA end-diastolic velocity is 21 cm/sec. Vertebral arteries demonstrate antegrade flow bilaterally. The color Doppler and wave spectral evaluation are within normal limits. IMPRESSION: Bilateral moderate atherosclerotic disease by ultrasound with no evidence of hemodynamically signific ant stenosis by ultrasound or color Doppler evaluation.
--- NOTE | 2020-11-10 10:23 | US ---
EXAM: Renal ultrasound HISTORY: Concern for stenosis COMPARISON: Renal Doppler same day TECHNIQUE: Sonographic evaluation of the kidneys was performed with limited Doppler evaluation. FINDINGS: The right kidney measures 10.3 x 4.9 x 5.1 cm with renal cortical thickness of 1.7 cm. Th ere is normal echogenicity and color Doppler flow. No visualized stone. There is mild prominence of the left renal collecting system. The left kidney measures 10.4 x 5.6 x 5.0 cm with renal cortical thickness of 1.5 cm. There is ling l echogenicity and color Doppler flow. No stone or hydronephrosis is identified. Limited evaluation of the urinary bladder is unremarkable. IMPRESSION: The left collecting system may represent pelviectasis versus minimal hydronephrosis. There is no obs truction or stone identified.
--- NOTE | 2020-11-10 11:59 | CONS ---
DATE OF CONSULTATION: 11/08/20 - Admit Note REASON FOR CONSULTATION: Hypertensive urgency. HISTORY OF PRESENT ILLNESS: The patient's blood pressure was noted to be 200. The patient was brought to the emergency room by granddaughter as she has been noticing the blood pressure to be elevated for the past one week. The patient has a history of hypertension, dyslipidemia and diabetes mellitus. The patient is a nonsmoker. No alcohol abuse. The patient's primary physician has left and hasn't been followed by anyone at the present time. Most of the patient's medications are supplements. Also, Zestril, Cardizem and Tradjenta. REVIEW OF SYSTEMS: CONSTITUTIONAL: No night sweats. No fatigue, malaise, lethargy. No fever or chills. HEENT: Eyes: No visual changes. No eye pain. No eye discharge. ENT: No sinus drainage. No epistaxis. No sinus pain. No sore throat. No odynophagia. No ear pain. No congestion. RESPIRATORY: No cough, no congestion. No hemoptysis. No shortness of breath. CARDIOVASCULAR: No angina symptoms. No CHF symptoms. No atypical chest pain for CAD. No palpitations. No orthopnea. GASTROINTESTINAL: No abdominal pain. No nausea or vomiting. No diarrhea or constipation. No hematemesis. No hematochezia. GENITOURINARY: No urgency. No frequency. No dysuria. No hematuria. No obstructive symptoms. No discharge. No pain. No significant abnormal bleeding. MUSCULOSKELETAL: No musculoskeletal pain. No joint swelling. NEUROLOGICAL: No headache. No neck pain. No syncope. No seizures. No dizziness. PSYCHIATRIC: Not anxious. No depression. No suicidal thoughts. No homicidal thoughts. SKIN: No rash. No lesions. No wounds. ENDOCRINE: No unexplained weight loss. No weight gain. HEMATOLOGIC/LYMPHATIC: No anemia. No purpura. No petechiae. No prolonged or excessive bleeding. No palpable lymph nodes. PHYSICAL EXAMINATION: VITAL SIGNS: BP at the present time 188/83. The patient has been given 5 mg of Hydralazine a couple of doses in the emergency room. She has been in the emergency room and the ER doctors have been trying to control the blood pressure. GENERAL: The patient is oriented to time, place and person. HEENT: Head normocephalic, atraumatic. Eyes: Extraocular muscles are intact. Pupils are equal, round and reactive to light and accommodation. Ears: No lesions. Nose appeared normal. Throat: No exudate or erythema. NECK: Supple. No JVD, no carotid bruit. No lymphadenopathy or thyromegaly. LUNGS: Clear to auscultation. Percussion note normal. Chest symmetrical. HEART: S1, S2, no S3. No murmurs. No cyanosis or clubbing. No ascites. Pulses: Dorsalis pedis and posterior tibial pulses +2 bilaterally. ABDOMEN: Soft. Nontender. Bowel sounds active. No CVA tenderness. No mass felt. EXTREMITIES: No edema. Full range of motion of all extremities, equal. NEUROLOGIC: No focal deficit. Cranial nerves II through XII are grossly intact. No headache, no double vision or headache. SKIN: Not dry. Intact. Turgor - normal. LYMPHATIC: No palpable lymph nodes/no lymphedema. MUSCULOSKELETAL: Normal joints with no swelling. Muscle tone is normal. ASSESSMENT: 1. Hypertension 2. Diabetes Mellitus Type 2 3. History of multiple infarcts 4. Obesity 5. Metabolic syndrome 6. Dyslipidemia 7. Chronic sinusitis RECOMMENDATIONS: 1. Will start Coreg 6.25 mg b.i.d. 2. Minoxidil 2.5 mg twice a day. 3. Continue Cardizem in the morning and Zestril in the morning as before. 4. Will also do lipid profile, A1C, T4, TSH. 5. DASH diet, low salt diet discussed. 6. BMI needs to be 23 plus/minus. Discussed with the patient. Weight loss diet discussed. 7. In the past, the patient has been noted to be noncompliant of her lifestyle, medications and followups. 8. Will do echocardiogram to evaluate LV function. 9. Continue telemetry. 10. Cardizem/Coreg combination - will watch the patient's heart rate. 11. Further adjustments in the patient's medications will be made. The patient was explained about all this and she is agreeable. MAGY
[2020-11-10] MEDS: HUMULIN R SUBCUT PRN (13:11)
--- NOTE | 2020-11-10 13:41 | CM.DICTOOL ---
ADMISSION: 11/08/20 11:25 DISCHARGE: 2020 DATE OF SERVICE: 11/10/20 FINAL DIAGNOSIS HYPERTENSIVE URGENCY, RESOLVED HYPERTENSION DIABETES MELLITUS, TYPE 2 DYSLIPIDEMIA OLD INFARCT; RIGHT FRONTAL, RIGHT PARIETAL AND LEFT CEREBELLAR (CT 10/2020) ANEMIA OBESITY, BMI 30 METABOLIC SYNDROME CHRONIC SINUSITIS HEPATIC STEATOSIS (PER CT AND ULTRASOUND) PREVIOUS SMOKER COLONSCOPY, 2014 (DR. MÁRQUEZ) ECHOCARDIOGRAM 10/2020 MARKED LVH WITH NORMAL LV CONTRACTILITY LAST VITALS Temp Pulse Resp BP Pulse Ox 98.2 F 67 16 134/71 98 11/10/20 08:38 11/10/20 08:38 11/10/20 08:38 11/10/20 08:38 11/10/20 08:38 TAKE THESE MEDICATIONS AT HOME Ascorbic Acid (Ascorbic Acid 500 Mg Tablet) 500 mg PO DAILY [facility] Last Admin: 11/10/20 10:08 Dose: 500 mg Documented by: Atorvastatin Calcium (Atorvastatin Calcium 20 Mg Tablet) 40 mg PO DAILY [facility] Last Admin: 11/10/20 10:06 Dose: 40 mg Documented by: Carvedilol (Carvedilol 12.5 Mg Tablet) 12.5 mg PO BIDWM [facility] (NEW RX) Last Admin: 11/10/20 10:08 Dose: 12.5 mg Documented by: Clopidogrel Bisulfate (Clopidogrel Bisulfate 75 Mg Tablet) 75 mg PO DAILY [facility] Last Admin: 11/10/20 10:08 Dose: 75 mg Documented by: Diltiazem HCl (Diltiazem Hcl 60 Mg Tablet) 60 mg PO BID [facility] (NEW RX) Last Admin: 11/10/20 08:38 Dose: 60 mg Documented by: Fish Oil ([place]-3/Dha/Epa/Fish Oil 1,000 Mg Capsule) 1,000 mg PO DAILYWM [facility] Last Admin: 11/10/20 10:07 Dose: 1,000 mg Documented by: Fluticasone Propionate (Fluticasone Propionate 16 Gm Nasal [place]) 2 spray DEL DAILY [facility] (NEW RX HOSPITAL SUPPLY FOR 30 DAY USE ONLY) Last Admin: 11/10/20 10:05 Dose: 2 spray Documented by: Lisinopril/HCTZ (Lisinopril/Hydrochlorothiazide 20/12.5 Tablet) 1 tab PO DAILY [facility] (NEW RX) Last Admin: 11/10/20 08:38 Dose: 1 tab Documented by: Insulin Glargine (Insulin Glargine,Hum.Rec.Anlog 100 Units/Ml) 45 unit SUBCUT BEDTIME [facility] Last Admin: 11/09/20 20:38 Dose: 45 unit Documented by: Latanoprost (Latanoprost 2.5 Ml Opth [place]) 1 drop EACHEYE BEDTIME [facility] Last Admin: 11/09/20 20:38 Dose: 1 drop Documented by: Linagliptin (Linagliptin 5 Mg Tablet) 5 mg PO DAILY [facility] Last Admin: 11/10/20 10:07 Dose: 5 mg Documented by: Metformin HCl (Metformin Hcl 1000 Mg Tablet) 1000 mg PO BIDWM [facility] Last Admin: 11/10/20 10:08 Dose: 500 mg Documented by: Multivitamins (Multivitamin 1 Tab) 1 tab PO DAILY [facility] Last Admin: 11/10/20 10:07 Dose: 1 tab Documented by: Niacin (Niacin 500 Mg Tab.Er.24h) 500 mg PO DAILY [facility] Last Admin: 11/10/20 10:07 Dose: 500 mg Documented by: Risperidone (Risperidone 0.5 Mg Tablet) 0.5 mg PO BEDTIME [facility] Last Admin: 11/09/20 20:37 Dose: 0.25 mg Documented by: Timolol Maleate (Timolol Maleate 5 Ml Opth Livia) 1 drop EACHEYE DAILY [facility] Last Admin: 11/10/20 10:09 Dose: 1 drop Documented by: Vitamin E (Vitamin E (Dl,Tocopheryl Acet) 400 Unit Capsule) 800 unit PO DAILY [facility] Last Admin: 11/10/20 10:06 Dose: 800 unit Documented by: ALLERGIES No Known Drug Allergies Adverse Reaction (Verified 08/18/20 10:16) Unknown DISCONTINUED MEDICATIONS CARDIZEM 120 MG DAILY LISINOPRIL 20 MG DAILY NEW PRESCRIPTIONS: COREG 12.5 MG BID CARDIZEM 60 MG BID LISINOPRIL/HCTZ 20-12.5 MG DAILY FLONASE NASAL SPRAY 2 SPRAYS EACH NOSTRIL DAY FOR 30 DAYS (HOSPITAL SUPPLY SENT) SMOKING: NOT APPLICABLE DISEASE SPECIFIC EDUCATION: HYPERTENSION NEW MEDICATIONS APPOINTMENT LAB REVIEW: 11/10/20 04:59 11/10/20 04:59 11/10/20 04:59: Sodium 139.1, Potassium 3.61, Chloride 105.3, Carbon Dioxide 26.2, Anion Gap 11.21, BUN 22.2 H, Creatinine 0.95, Estimated GFR (MDRD) 71.00, BUN/Creatinine Ratio 23.36, Glucose 159.4 H, Calcium 9.04, Total Bilirubin 0.95, AST 45.6 H, ALT 40.0 H, Alkaline Phosphatase 58.7, Total Protein 6.53, Albumin 4.06, Globulin 2.47, Albumin/Globulin Ratio 1.64 11/10/20 04:59: WBC 8.20, RBC 3.80 L, Hgb 10.5 L, Hct 31.6 L, MCV 83.2, MCH 27.6, MCHC 33.2, RDW Coeff of [place]ette 13.7, Plt Count 298, Immature Gran % (Auto) 0.1, Neut % (Auto) 37.5 L, Lymph % (Auto) 46.3, [place] % (Auto) 10.5 H, Eos % (Auto) 4.3, Baso % (Auto) 1.3, Neut # (Auto) 3.1, Lymph # (Auto) 3.8 H, [place] # (Auto) 0.9, Eos # (Auto) 0.4, Baso # (Auto) 0.1, Immature Gran # (Auto) 0.0 PLAN: DISCHARGE HOME DIET: HEART HEALTHY, CONSISTENT CARBOHYDRATE ACTIVITY: GRADUALLY RESUME TOLERATED CONTINUE TO CHECK YOUR BLOOD SUGARS AT LEAST TWICE A DAY (MORNING AND AT BEDTIME) AN APPOINTMENT IS SCHEDULED WITH DR. PACHECO/JIMMY DOMINGO APRN/SERGE CASTELLANO APRN ON November AT 1:45 PM CODE STATUS: FULL CODE MISS GARCIA IS ALERT AND ORIENTED X 4. SHE LIVES ALONE AND IS INDEPENDENT WITH ALL ACTIVITIES OF DAILY LIVING. SHE REPORTS SHE RELIES ON HER FAMILY FOR TRANSPORTATION. SHE IS AGREEABLE AND PLEASED WITH PLANS FOR DISCHARGE HOME TODAY. SHE HAS INDICATED A DESIRE TO FOLLOW WITH DR. PACHECO AND OFFICE HER PRIMARY CARE PROVIDER. MISS GARCIA IS INDEPENDENT WITH BED MOBILITY. SHE TRANSFERS PER SELF AND IS AMBULATORY IN THE ROOM WITHOUT USE OF ASSISTIVE DEVICE OR STAFF ASSISTANCE. SHE IS CONTINENT OF BOWEL AND BLADDER. MEAL INTAKES ARE GOOD AT 75-100% WITH PATIENT SELF FEEDING. HYDRATION STATUS IS GOOD. SKIN IS INTACT. MD JIMMY LANTIGUA APRN
--- NOTE | 2020-11-10 13:50 | HP ---
DATE OF SERVICE: 11/08/20 REASON FOR HOSPITALIZATION: Hypertensive urgency. HISTORY OF PRESENT ILLNESS: 70-year-old black female was brought to the emergency room by the family, granddaughter. Blood pressure running high for the past one week. In the emergency room the patient was given medication including Hydralazine with no response. The patient was hospitalized after 8 or 9 hours of medication tried in the emergency room with systolic blood pressure of 180. PAST MEDICAL HISTORY: Diabetes mellitus Hypertension Dyslipidemia Anxiety disorder Glaucoma PAST SURGICAL HISTORY: Cataract surgery REVIEW OF SYSTEMS: CONSTITUTIONAL: No night sweats. No fatigue, malaise, lethargy. No fever or chills. HEENT: Eyes: No visual changes. No eye pain. No eye discharge. ENT: No runny nose. No epistaxis. No sinus pain. No sore throat. No odynophagia. No ear pain. No congestion. RESPIRATORY: No cough, no congestion. No hemoptysis. No shortness of breath. CARDIOVASCULAR: No angina symptoms. No CHF symptoms. No atypical chest pain for CAD. No palpitations. No PND. No orthopnea. GASTROINTESTINAL: No abdominal pain. No nausea or vomiting. No diarrhea or constipation. No hematemesis. No hematochezia. GENITOURINARY: No urgency. No frequency. No dysuria. No hematuria. No obstructive symptoms. No discharge. No pain. No significant abnormal bleeding. MUSCULOSKELETAL: No musculoskeletal pain. No joint swelling. No arthritis. NEUROLOGICAL: No headache. No neck pain. No syncope. No seizures. No dizziness. PSYCHIATRIC: Not anxious. No depression. No suicidal thoughts. No homicidal thoughts. SKIN: No rash. No lesions. No wounds. ENDOCRINE: No unexplained weight loss. No weight gain. HEMATOLOGIC/LYMPHATIC: No anemia. No purpura. No petechiae. No prolonged or excessive bleeding. No palpable lymph nodes. PERSONAL/FAMILY/SOCIAL HISTORY: The patient is single for a number of years, lives alone. The daughter is Beryl Brito who takes care of her. The patient does all activity of daily living. No history of fall. MEDICATIONS: Vitamin E 400 unit 1000 unit p.o. daily Fish Oil 500 mg p.o. b.i.d. Ascorbate Calcium (Vitamin C) 500 mg p.o. daily Niacin 500 mg p.o. daily Latanoprost 0.005 drop both eyes bedtime Multivitamin one each p.o. daily Timolol 0.5% drops one drop both eyes daily Risperidone 0.5 mg Linagliptin - Tradjenta Atorvastatin 40 mg p.o. daily Lantus Insulin Lisinopril 20 mg p.o. q.day Metformin 1,000 mg Diltiazem 120 mg p.o. q.a.m. Clopidogrel 75 mg ALLERGIES: NKDA PHYSICAL EXAMINATION: GENERAL: The patient is oriented to time, place and person. VITAL SIGNS: Temperature 98, pulse 70, respiratory rate 15, BP 170/70. Pulse ox 96% on room air. HEENT: Head normocephalic, atraumatic. Eyes: Extraocular muscles are intact. Pupils are equal, round and reactive to light and accommodation. Ears: No lesions. Nose appeared normal. Throat: No exudate or erythema. NECK: Supple. No JVD, no carotid bruit. No lymphadenopathy or thyromegaly. LUNGS: Clear to auscultation. Percussion note normal. Chest symmetrical. HEART: S1, S2, no S3. No murmur. No cyanosis or clubbing. No ascites. Pulses: Dorsalis pedis and posterior tibial pulses +1 to +2 bilaterally. ABDOMEN: Soft. Nontender. Bowel sounds active. No CVA tenderness. No mass felt. EXTREMITIES: No edema. Full range of motion of all extremities, equal. NEUROLOGIC: No focal deficit. Cranial nerves II through XII are grossly intact. No headache, no double vision or headache. SKIN: Not dry. Intact. Turgor - normal. LYMPHATIC: No palpable lymph nodes/no lymphedema. MUSCULOSKELETAL: Normal joints with no swelling. Muscle tone is normal. EKG sinus rhythm. ST-T wave changes in the lateral precordial leads indicating possibility of ischemia and/or strain pattern. Telemetry strips - no arrhythmias. Chest x-ray negative. Cardiac markers negative. Covid negative. T4, TSH normal. Lipid profile normal. Total cholesterol 132. ASSESSMENT: 1. Hypertension, uncontrolled. 2. Diabetes mellitus, A1C was recorded as 7. 3. Dyslipidemia. Total cholesterol 132 on Atorvastatin. 4. Obesity, BMI 30. PLAN: 1. Continue on Cardizem 60 mg p.o. twice a day. 2. Coreg - new medication was added 6.25 now increased to 12.5 twice a day. 3. Zestril discontinued 20 mg. 4. Start Zestoretic 20-12.5 p.o. daily. 5. Continue Clopidogrel. 6. Minoxidil 2.5 mg twice a day. 7. DASH diet discussed with the patient. 8. Low salt diet. 9. She needs to lose 15 to 20 lbs. 10. Renal flow study with ultrasound of kidneys to rule out renal artery stenosis. 11. Head CT scan for the dizziness to be done in the morning. 12. Echocardiogram was done today which showed moderate LVH with normal LV contractility, normal LV size, normal LA size, normal valves. ADDENDUM: The patient has chronic anemia, will do anemia profile before discharge. The patient's condition is stable. Will follow. (The patient was taken also as a history and physical for consult note.) TIME SPENT: More than 70 minutes. MAGY
[2020-11-10 14:01] VITALS: BP 118/64; TEMP 97.9
--- NOTE | 2020-11-11 07:52 | ECHO2D ---
Date of Exam: 11/09/2020 Ordering Physician: HOSPITALIST--[facility] Room #: 103 Reason for Echo: HTN, DYSLIPIDEMIA, DM2 M-Mode Normal Adult Results LV Dimensions Normal Adult Results AoV Opening excursions >1.6 >1.6 LVEDD-base- 3.5-5.8 5.1 Ao root dimensions 2.0-3.7 2.9 LVESD-base- 3.1-4.6 L. Atrium dimensions 1.9-3.8 3.9 Post. Wall thickness 0.8-1.1 1.4 IV septum (thickness) 0.7-1.2 1.6 Post. Wall excursion 0.72-1.3 NORMAL Septal motion NORMAL Systolic motion R. Ventricular cavity 1.5-2.0 NORMAL LVEF 60% 60% Paradoxical septal wall motion NORMAL 2-D : 2-D M Mode Echocardiogram was performed using apical four chamber and left parasternal long and short axis views. Mitral, tricuspid and aortic valves appear to be normal. Contractility of the left ventricle seems to be normal, so is the cavity size. Left atrial cavity size and aortic root appear to be normal. There is no pericardial effusion. There is no thrombus noted in the left ventricle or left atrial cavity. M-MODE: MV: NORMAL AV: NORMAL TV: NORMAL PV: CHAMBER SIZE: NORMAL WALL MOTION: NORMAL PERICARDIUM: NORMAL INTERPRETATION: 1. MODERATE LEFT VENTRICLE HYPERTROPHY--NORMAL LEFT ATRIAL SIZE 2. NORMAL LEFT VENTRICLE CONTRACTILITY AND SIZE OF LEFT VENTRICLE 3. NORMAL VALVES MTDD
--- NOTE | 2020-11-12 09:02 | DS ---
DATE OF SERVICE: 11/10/2020 FINAL DIAGNOSIS: HYPERTENSIVE URGENCY, RESOLVED HYPERTENSION DIABETES MELLITUS, TYPE 2 DYSLIPIDEMIA OLD INFARCT; RIGHT FRONTAL, RIGHT PARIETAL AND LEFT CEREBELLAR (CT 10/2020) ANEMIA OBESITY, BMI 30 METABOLIC SYNDROME CHRONIC SINUSITIS HEPATIC STEATOSIS (PER CT AND ULTRASOUND) PREVIOUS SMOKER COLONOSCOPY, 2013 (DR. MÁRQUEZ) ECHOCARDIOGRAM 10/2020 MARKED LVH WITH NORMAL LV CONTRACTILITY LAST VITALS: Temp Pulse Resp BP Pulse Ox 98.2 F 67 16 134/71 98 11/10/20 08:38 11/10/20 08:38 11/10/20 08:38 11/10/20 08:38 11/10/20 08:38 DISCHARGE INSTRUCTIONS: DISCHARGE HOME. CONTINUE TO CHECK YOUR BLOOD SUGARS AT LEAST TWICE A DAY (MORNING AND AT BEDTIME).AN APPOINTMENT IS SCHEDULED WITH DR. PACHECO/JIMMY DOMINGO APRN/SERGE CASTELLANO APRN ON November AT 1:45 PM. CODE STATUS: FULL CODE TAKE THESE MEDICATIONS AT HOME: Ascorbic Acid (Ascorbic Acid 500 Mg Tablet) 500 mg PO DAILY [facility] Last Admin: 11/10/20 10:08 Dose: 500 mg Documented by: Atorvastatin Calcium (Atorvastatin Calcium 20 Mg Tablet) 40 mg PO DAILY [facility] Last Admin: 11/10/20 10:06 Dose: 40 mg Documented by: Carvedilol (Carvedilol 12.5 Mg Tablet) 12.5 mg PO BIDWM [facility] (NEW RX) Last Admin: 11/10/20 10:08 Dose: 12.5 mg Documented by: Clopidogrel Bisulfate (Clopidogrel Bisulfate 75 Mg Tablet) 75 mg PO DAILY [facility] Last Admin: 11/10/20 10:08 Dose: 75 mg Documented by: Diltiazem HCl (Diltiazem Hcl 60 Mg Tablet) 60 mg PO BID [facility] (NEW RX) Last Admin: 11/10/20 08:38 Dose: 60 mg Documented by: Fish Oil ([place]-3/Dha/Epa/Fish Oil 1,000 Mg Capsule) 1,000 mg PO DAILYWM [facility] Last Admin: 11/10/20 10:07 Dose: 1,000 mg Documented by: Fluticasone Propionate (Fluticasone Propionate 16 Gm Nasal [place]) 2 spray DEL DAILY [facility] (NEW RX HOSPITAL SUPPLY FOR 30 DAY USE ONLY) Last Admin: 11/10/20 10:05 Dose: 2 spray Documented by: Lisinopril/HCTZ (Lisinopril/Hydrochlorothiazide 20/12.5 Tablet) 1 tab PO DAILY [facility] (NEW RX) Last Admin: 11/10/20 08:38 Dose: 1 tab Documented by: Insulin Glargine (Insulin Glargine,Hum.Rec.Anlog 100 Units/Ml) 45 unit SUBCUT BEDTIME [facility] Last Admin: 11/09/20 20:38 Dose: 45 unit Documented by: Latanoprost (Latanoprost 2.5 Ml Opth [place]ivia) 1 drop EACHEYE BEDTIME [facility] Last Admin: 11/09/20 20:38 Dose: 1 drop Documented by: Linagliptin (Linagliptin 5 Mg Tablet) 5 mg PO DAILY [facility] Last Admin: 11/10/20 10:07 Dose: 5 mg Documented by: Metformin HCl (Metformin Hcl 1000 Mg Tablet) 1000 mg PO BIDWM [facility] Last Admin: 11/10/20 10:08 Dose: 500 mg Documented by: Multivitamins (Multivitamin 1 Tab) 1 tab PO DAILY [facility] Last Admin: 11/10/20 10:07 Dose: 1 tab Documented by: Niacin (Niacin 500 Mg Tab.Er.24h) 500 mg PO DAILY [facility] Last Admin: 11/10/20 10:07 Dose: 500 mg Documented by: Risperidone (Risperidone 0.5 Mg Tablet) 0.5 mg PO BEDTIME [facility] Last Admin: 11/09/20 20:37 Dose: 0.25 mg Documented by: Timolol Maleate (Timolol Maleate 5 Ml Opth Livia) 1 drop EACHEYE DAILY [facility] Last Admin: 11/10/20 10:09 Dose: 1 drop Documented by: Vitamin E (Vitamin E (Dl,Tocopheryl Acet) 400 Unit Capsule) 800 unit PO DAILY [facility] Last Admin: 11/10/20 10:06 Dose: 800 unit Documented by: ALLERGIES: No Known Drug Allergies Adverse Reaction (Verified 08/18/20 10:16) Unknown DISCONTINUED MEDICATIONS: CARDIZEM 120 MG DAILY LISINOPRIL 20 MG DAILY NEW PRESCRIPTIONS: COREG 12.5 MG BID CARDIZEM 60 MG BID LISINOPRIL/HCTZ 20-12.5 MG DAILY FLONASE NASAL SPRAY 2 SPRAYS EACH NOSTRIL DAY FOR 30 DAYS (HOSPITAL SUPPLY SENT) SMOKING: NOT APPLICABLE DISEASE SPECIFIC EDUCATION: HYPERTENSION NEW MEDICATIONS APPOINTMENT LAB REVIEW: 11/10/20 04:59 11/10/20 04:59 11/10/20 04:59: Sodium 139.1, Potassium 3.61, Chloride 105.3, Carbon Dioxide 26.2, Anion Gap 11.21, BUN 22.2 H, Creatinine 0.95, Estimated GFR (MDRD) 71.00, BUN/Creatinine Ratio 23.36, Glucose 159.4 H, Calcium 9.04, Total Bilirubin 0.95, AST 45.6 H, ALT 40.0 H, Alkaline Phosphatase 58.7, Total Protein 6.53, Albumin 4.06, Globulin 2.47, Albumin/Globulin Ratio 1.64 11/10/20 04:59: WBC 8.20, RBC 3.80 L, Hgb 10.5 L, Hct 31.6 L, MCV 83.2, MCH 27.6, MCHC 33.2, RDW Coeff of [place] 13.7, Plt Count 298, Immature Gran % (Auto) 0.1, Neut % (Auto) 37.5 L, Lymph % (Auto) 46.3, [place] % (Auto) 10.5 H, Eos % (Auto) 4.3, Baso % (Auto) 1.3, Neut # (Auto) 3.1, Lymph # (Auto) 3.8 H, [place] # (Auto) 0.9, Eos # (Auto) 0.4, Baso # (Auto) 0.1, Immature Gran # (Auto) 0.0 DIET: HEART HEALTHY, CONSISTENT CARBOHYDRATE ACTIVITY: GRADUALLY RESUME TOLERATED HOSPITAL COURSE: Snoya Brito was hospitalized with hypertensive urgency. The patient was treated in the emergency room for 7-8 hours with different medications with coming down from more than 200 systolic down to 170. She was noted to have high blood pressure for a week prior. She was brought down to the emergency room by family members. The patient has history of diabetes mellitus for a long time along with hypertension, dyslipidemia. Her primary care physician was [place] who left and she hasn't seen anybody in the past several weeks. The patient during the stay in the hospital was on Coreg. The dose was increased at discharge to 12.5 twice a day. The Cardizem was split to 60mg twice a day instead of 120mg in the morning. Zestril continued instead of Zestoretic which is a combination of Zestril and Hydrochlorothiazide was added as a morning medication. The patient was on Minoxidil for the time being. She was not continued on Minoxidil at the time of discharge. The patient underwent carotid scan which showed atherosclerotic plaque but not more than 50%. Echocardiogram showed moderate left ventricle hypertrophy, LV contractility normal, LA and LV size. The patient is going to be discharged home in stable condition. She was explained about losing 15-20 pounds. DASH diet was discussed. Advised to cut down on salt intake. Goal blood pressure will be 135/85 or less. She was continued on her Atorvastatin and Plavix. The patient's pedal pulses are +2 strong. There is no evidence of CHF or coronary insufficiency. The patient may undergo stress echo or Dobutamine stress echo as an outpatient at present time she declined. The patient is strongly have mammogram and colonoscopy as recommended. Diet of diabetes mellitus discussed. Complication of diabetes discussed in detail. Symptoms of coronary insufficiency discussed. The patient is to be followed by me as an outpatient. The appointment has already been given to her. The patient has agreed to be followed by me and become the care provider for her. CONDITION: Stable. TIME SPENT: More than 60 minutes. MAGY
--- NOTE | 2020-11-12 09:03 | PN ---
11/08/2020: Seen on consultation, Level 5 11/09/2020: Extensive 11/10/2020: Intermediate because the patient was seen on consultation. MTDD
== END 2020-11-10 14:35 | disposition home or self-care (01) | DRG 305 ==
LOC: ED 23:36 → MEDSURG A 23:36
PROVIDERS: ADMIT Emergency Medicine; ATTEND Internal Medicine
DX: J32.9 Chronic sinusitis, unspecified; E11.9 Type 2 diabetes mellitus without complications; E66.9 Obesity, unspecified; E88.81 Metabolic syndrome and other insulin resistance; Z20.822 Contact with and (suspected) exposure to COVID-19; E78.5 Hyperlipidemia, unspecified; I10 Essential (primary) hypertension; R42 Dizziness and giddiness; D64.9 Anemia, unspecified